=== PATIENT | female | born 1995 | race Two or more races ===

== ENCOUNTER 2018-04-05 13:38 | Emergency (ER) | payer MEDICAID, OTHER ==
[~2018-04-05] VITALS: Ht 165.1 cm; Wt 67.2 kg
[2018-04-05 13:40] VITALS: BP 104/59
== END 2018-04-05 14:49 | disposition home or self-care (01) ==
LOC: ER 13:38
DX: J03.90 Acute tonsillitis, unspecified (principal)

== ENCOUNTER 2018-04-16 12:59 | Emergency (ER) | payer OTHER ==
[~2018-04-16] VITALS: Ht 165.1 cm; Wt 67.1 kg
[2018-04-16 13:00] VITALS: BP 103/63
[2018-04-16] MEDS ORDERED: LIDOCAINE VISCOUS 2% 15ML UD PO ONE (14:45)
[2018-04-16] MEDS ORDERED: KETOROLAC TROMETH 60MG/2ML VIAL IM ONE (14:45)
== END 2018-04-16 15:08 | disposition home or self-care (01) ==
LOC: ER 12:59
DX: J02.9 Acute pharyngitis, unspecified (principal); R51 Headache; J45.909 Unspecified asthma, uncomplicated
CPT/HCPCS: 96372; 99283; J1885

== ENCOUNTER 2018-06-11 21:58 | Emergency (ER) | payer MEDICAID ==
[~2018-06-11] VITALS: Ht 165.1 cm; Wt 65.8 kg
[2018-06-11 22:09] VITALS: BP 104/64
[2018-06-12] MEDS ORDERED: ONDANSETRON ODT 4 MG TAB PO ONE (02:00)
[2018-06-12] MEDS ORDERED: SODIUM CHLORIDE 0.9% 1,000 ML IV ONE (02:00)
[2018-06-12] MEDS ORDERED: ONDANSETRON HCL 4 MG/2 ML VIAL ONE (02:25)
[2018-06-12] MEDS ORDERED: ONDANSETRON HCL 4 MG/2 ML VIAL IV ONE (02:30)
== END 2018-06-12 03:04 | disposition home or self-care (01) ==
LOC: ER 21:58
DX: J03.90 Acute tonsillitis, unspecified (principal); R11.2 Nausea with vomiting, unspecified; R19.7 Diarrhea, unspecified; J45.909 Unspecified asthma, uncomplicated; F17.210 Nicotine dependence, cigarettes, uncomplicated
CPT/HCPCS: 96361; 96374; 99284; J2405; J7030

== ENCOUNTER 2020-03-30 07:44 | Emergency (ER) | payer MEDICAID ==
[~2020-03-30] VITALS: Ht 165.1 cm; Wt 64.9 kg
[2020-03-30 08:05] VITALS: BP 95/62
[2020-03-30] MEDS ORDERED: methylPREDNISolone SOD SUCC 125 MG/2 ML VL IM ONE (08:15)
[2020-03-30] MEDS ORDERED: IBUPROFEN 800 MG TAB PO ONE (08:15)
== END 2020-03-30 08:51 | disposition home or self-care (01) ==
LOC: ER 07:44
DX: R09.82 Postnasal drip (principal); J00 Acute nasopharyngitis [common cold]; F17.210 Nicotine dependence, cigarettes, uncomplicated; J45.909 Unspecified asthma, uncomplicated
CPT/HCPCS: 71046; 96372; 99283; J2930

== ENCOUNTER 2020-04-14 19:20 | Emergency (ER) | payer MEDICAID ==
[~2020-04-14] VITALS: Ht 165.1 cm; Wt 64.9 kg
[2020-04-14 20:05] VITALS: BP 106/63
[2020-04-14] MEDS ORDERED: ONDANSETRON HCL 4 MG/2 ML VIAL IV ONE (20:15)
[2020-04-14] MEDS ORDERED: SODIUM CHLORIDE 0.9% 1,000 ML IV ONE (20:15)
[2020-04-14 20:38] LABS: Basophils # (auto) 0 10 ^3/uL (0-0.2); Basophils % (auto) 0.4 % (0.0-2.0); Eosinophils # (auto) 0.1 10 ^3/uL (0-0.8); Eosinophils % (auto) 1.5 % (0.0-7.0); Hematocrit 42.4 % (36.0-46.0); Hemoglobin 14.1 g/dL (12.2-16.2); Lymphocytes # (auto) 3.1 10 ^3/uL (0.4-5.4); Lymphocytes % (auto) 33.9 % (10.0-50.0); Mean Corpuscular Hemoglobin 31.8 pg (28.0-32.0); Mean Corpuscular Hgb Conc. 33.3 g/dL (32.0-36.0); Mean Corpuscular Volume 95.5 fL (80.0-100.0); Monocytes # (auto) 0.5 10 ^3/uL (0-1.3); Monocytes % (auto) 5.2 % (0.0-12.0); Neutrophils # (auto) 5.4 10 ^3/uL (1.6-8.6); Nucleated Red Blood Cells % 0.1 %; Platelet Count (auto) 235 10^3/uL (140-450); Red Blood Cells 4.43 10^6/uL (4.0-5.20); Red Cell Distribution Width 11.9 % (11.8-14.3); White Blood Cell 9.1 10^3/uL (4.4-10.8)
[2020-04-14 20:55] LABS: Albumin 3.7 g/dL (3.4-5.0); Calcium 8.8 mg/dL (8.5-10.1); Potassium 3.5 mmol/L (3.5-5.1)
[2020-04-14 20:58] LABS: BUN/Creatinine Ratio 12.8; Bilirubin, Total 0.4 mg/dL (0.2-1.0); Total Protein 7.4 g/dL (6.4-8.2)
[2020-04-14 22:16] LABS: Urine Bacteria MOD /hpf (None Seen); Urine Blood 2+ /uL (Negative); Urine Mucus FEW (None Seen); Urine Specific Gravity 1.022 (1.001-1.035); Urine WBC 4 /hpf (0 - 5)
[2020-04-14 23:47] LABS: Amylase 51 U/L (25-115); Lipase 101 U/L (73-393)
== END 2020-04-15 00:12 | disposition home or self-care (01) ==
LOC: ER 19:21
DX: K59.00 Constipation, unspecified (principal)
CPT/HCPCS: 36415; 74176; 80053; 81001; 81025; 82150; 83690; 85025; 96361; 96374; 99284; J2405; J7030

== ENCOUNTER 2020-07-13 16:34 | Emergency (ER) | payer MEDICAID ==
[~2020-07-13] VITALS: Ht 165.1 cm; Wt 61.2 kg
[2020-07-13 20:04] LABS: Urine Amorphous Crystal FEW /hpf (None Seen); Urine Bacteria NONE SEEN /hpf (None Seen); Urine Blood 3+ /uL (Negative); Urine Mucus FEW (None Seen); Urine Specific Gravity 1.026 (1.001-1.035); Urine WBC 22 /hpf (0 - 5); Urine WBC Clumps PRESENT /hpf (None Seen)
[2020-07-13 21:20] VITALS: BP 113/60
== END 2020-07-13 21:27 | disposition home or self-care (01) ==
LOC: ER 16:34
DX: O23.41 Unspecified infection of urinary tract in pregnancy, first trimester (principal); O99.511 Diseases of the respiratory system complicating pregnancy, first trimester; J45.909 Unspecified asthma, uncomplicated; O99.331 Smoking (tobacco) complicating pregnancy, first trimester; Z3A.00 Weeks of gestation of pregnancy not specified
CPT/HCPCS: 36415; 81001; 84702

== ENCOUNTER 2021-09-26 08:45 | Emergency (ER) | payer MEDICAID ==
[~2021-09-26] VITALS: Ht 165.1 cm; Wt 68.0 kg
[2021-09-26] MEDS ORDERED: SODIUM CHLORIDE 0.9% 1,000 ML IV ONE (09:45)
[2021-09-26] MEDS ORDERED: ONDANSETRON ODT 4 MG TAB PO ONE ×2 (09:45→12:45)
[2021-09-26] MEDS ORDERED: ONDANSETRON HCL 4 MG/2 ML VIAL IM ONE (10:30)
[2021-09-26] MEDS ORDERED: MORPHINE SULFATE INJECTION 2 MG/ML SYRG IV ONE (10:30)
[2021-09-26 11:07] VITALS: BP 114/62
[2021-09-26 11:21] LABS: Urine Bacteria FEW /hpf (None Seen); Urine Blood TRACE /uL (Negative); Urine Mucus FEW (None Seen); Urine Specific Gravity 1.032 (1.001-1.035); Urine WBC 1 /hpf (0 - 5)
[2021-09-26 11:27] LABS: Basophils # (auto) 0 10 ^3/uL (0-0.2); Basophils % (auto) 0.1 % (0.0-2.0); Eosinophils # (auto) 0 10 ^3/uL (0-0.8); Eosinophils % (auto) 0.1 % (0.0-7.0); Hematocrit 45.4 % (36.0-46.0); Hemoglobin 15.1 g/dL (12.2-16.2); Lymphocytes # (auto) 0.4 10 ^3/uL (0.4-5.4); Lymphocytes % (auto) 4.2 % (10.0-50.0); Mean Corpuscular Hgb Conc. 33.1 g/dL (32.0-36.0); Mean Corpuscular Volume 93.6 fL (80.0-100.0); Monocytes # (auto) 0.2 10 ^3/uL (0-1.3); Monocytes % (auto) 2.2 % (0.0-12.0); Neutrophils # (auto) 9.4 10 ^3/uL (1.6-8.6); Neutrophils % (auto) 93.4 % (37.0-80.0); Red Blood Cells 4.86 10^6/uL (4.0-5.20); Red Cell Distribution Width 11.9 % (11.8-14.3)
[2021-09-26 11:35] LABS: Albumin 3.9 g/dL (3.4-5.0); BUN/Creatinine Ratio 22.7; Bilirubin, Total 0.7 mg/dL (0.2-1.0); Calcium 9.1 mg/dL (8.5-10.1); Total Protein 7.6 g/dL (6.4-8.2)
[2021-09-26] MEDS ORDERED: KETOROLAC TROMETH 60MG/2ML VIAL IM ONE (12:15)
[2021-09-26] MEDS ORDERED: IBUP800T26 PO (13:27)
[2021-09-26] MEDS ORDERED: ONDA-144 PO (13:27)
[2021-09-26] MEDS ORDERED: CIPR-173 PO (13:27)
== END 2021-09-26 13:36 | disposition home or self-care (01) ==
LOC: ER 08:45
DX: K52.9 Noninfective gastroenteritis and colitis, unspecified (principal); N39.0 Urinary tract infection, site not specified; A05.9 Bacterial foodborne intoxication, unspecified; J45.909 Unspecified asthma, uncomplicated; Z20.822 Contact with and (suspected) exposure to COVID-19
CPT/HCPCS: 36415; 74176; 80053; 81001; 82150; 83690; 85025; 87426; 96361; 96372; 96374; 99284; J1885; J2270; J2405; J7030; Q0162

== ENCOUNTER 2021-10-14 14:28 | Emergency (ER) | payer MEDICAID ==
[~2021-10-14] VITALS: Ht 165.1 cm; Wt 68.0 kg
[~2021-10-14 14:28] MED LIST: CIPR-173 PO; IBUP800T26 PO; ONDA-144 PO
[2021-10-14 15:32] VITALS: BP 105/65
[2021-10-14] MEDS ORDERED: PROMETHAZINE HCL 25 MG/ML 1ML IM ONE (15:45)
[2021-10-14] MEDS ORDERED: KETOROLAC TROMETH 60MG/2ML VIAL IM ONE (15:45)
== END 2021-10-14 16:35 | disposition home or self-care (01) ==
LOC: ER 14:28
DX: F41.1 Generalized anxiety disorder (principal); G43.909 Migraine, unspecified, not intractable, without status migrainosus; J45.909 Unspecified asthma, uncomplicated; F32.9 Major depressive disorder, single episode, unspecified; F17.210 Nicotine dependence, cigarettes, uncomplicated
CPT/HCPCS: 96372; 99284; J1885; J2550

== ENCOUNTER 2023-12-21 16:48 | Emergency (ER) | payer MEDICAID ==
[~2023-12-21] VITALS: Ht 165.1 cm; Wt 90.2 kg
[~2023-12-21 16:48] MED LIST changes: +IBUP-1455 PO; -IBUP800T26 PO
[2023-12-21 18:17] VITALS: BP 114/54; PULSE 102; RESP 16; TEMP 98.9; O2SAT 100
== END 2023-12-21 19:00 | disposition home or self-care (01) ==
LOC: ER 16:48
DX: J02.9 Acute pharyngitis, unspecified (principal); R51.9 Headache, unspecified; R05.9 Cough, unspecified; J45.909 Unspecified asthma, uncomplicated; F17.210 Nicotine dependence, cigarettes, uncomplicated; Z79.1 Long term (current) use of non-steroidal anti-inflammatories (NSAID); Z79.2 Long term (current) use of antibiotics; Z79.899 Other long term (current) drug therapy

== ENCOUNTER 2025-05-03 14:21 | Emergency (ER) | payer MEDICAID ==
[~2025-05-03] VITALS: Ht 162.6 cm; Wt 83.2 kg
[2025-05-03 15:45] LABS: Hematocrit 44.7 % (36.0-46.0); Hemoglobin 15.5 g/dL (12.2-16.2); Mean Corpuscular Hemoglobin 31.7 pg (28.0-32.0); Mean Corpuscular Volume 91.6 fL (80.0-100.0); Nucleated Red Blood Cells % 0.0 %
[2025-05-03 15:52] LABS: Chloride 104 mmol/L (98-107); Potassium 3.8 mmol/L (3.5-5.1); Sodium 140 mmol/L (136-145)
[2025-05-03 15:53] LABS: Anion Gap 10 (5-15); Calcium 9.0 mg/dL (8.7-10.4); Carbon Dioxide 26 mmol/L (20-31)
--- NOTE | 2025-05-03 15:53 | ED.PDOC ---
History of Present Illness HPI Comments 29 y.o female presents to the ED for a chief complaint of a sore throat associated with dizziness, body aches, and nasal drip x 1 day. Patient reports this morning she had nausea followed by vomiting described as bile and diarrhea. Patient reports dizziness causes her to be uncoordinated and worsens with head movement. She has history of nystagmus and asthma. She denies any chest pain, SOB, fever, chills, bloody stool, hematemesis, dysuria. Chief Complaint: Dizziness Time Seen by MD: 15:42 Primary Care Provider: unknown Reviewed Notes: Nurses Notes, Medications, Allergies Allergies: Coded Allergies: NO KNOWN ALLERGIES (Unverified , 09/20/15) Home Meds Active Scripts Ibuprofen Micronized (Ibuprofen) 800 Mg Tab, 800 MG PO TIDPRN PRN for 10 Days, #30 TAB 0 Refills Prov:IFRAH FISCHERP 09/26/21 Ciprofloxacin Hcl (Cipro) 500 Mg Tab, 500 MG PO BID for 5 Days, #10 TAB 0 Refills Prov:IFRAH FISCHERP 09/26/21 Ondansetron (Zofran) 4 Mg Tab, 1 TAB PO Q4HP PRN for 3 Days, #15 TAB 0 Refills Prov:IFRAH FISCHERP 09/26/21 Information Source: Patient Mode of Arrival: Ambulatory Severity: Moderate Timing: Days (1) Duration: Since onset Past Medical History PAST MEDICAL HISTORY: Anxiety, Asthma, Depression Surgical History: DOG BEHAVIORIST History: No Pertinent DOG BEHAVIORIST History Family History Family History: Reviewed,noncontributory to illness, Family hx of DM Social History Smoker: Cigarettes, Other Alcohol: Occasionally Drugs: Denies Drug Use Lives In: Home Constitutional: denies: chills, diaphoresis, fatigue, fever, malaise, sweats, weakness, others EENTM: reports: throat pain; denies: blurred vision, double vision, ear bleeding, ear discharge, ear drainage, ear pain, ear ringing, eye pain, eye redness, hearing loss, mouth pain, mouth swelling, nasal discharge, nose bl eeding, nose congestion, nose pain, photophobia, tearing, throat swelling, voice changes, others Respiratory: denies: cough, hemoptysis, orthopnea, SOB at rest, shortness of breath, SOB with excertion, stridor, wheezing, others Cardiovascular: denies: chest pain, dizzy spells, diaphoresis, Dyspnea on exertion, edema, irregular heart beat, left arm pain, lightheadedness, palpitations, PND, syncope, others Gastrointestinal: reports: nausea, vomiting; denies: abdomen distended, abdominal pain, blood streaked bowels, constipated, diarrhea, dysphagia, difficulty swallowing, hematemesis, melena, poor appetite, poor fluid intake, rectal bleeding, rectal pain, others Genitourinary: denies: abnormal vagina bleeding, burning, dyspareunia, dysuria, flank pain, frequency, hematuria, incontinence, pain, , vagina discharge, urgency, others Neurological: reports: dizziness, headache; denies: fainting, left sided numbness, left sided weakness, numbness, paresthesia, pre-existing deficit, right sided numbness, right sided weakness, seizure, speech problems, tingling, tremors, weakness, others Musculoskeletal: reports: muscle pain; denies: back pain, gout, joint pain, joint swelling, muscle stiffness, neck pain, others Integumetry: denies: bruises, change in color, change in hair/nails, dryness, laceration, lesions, lumps, rash, wounds, others Allergic/Immunocompromised: denies: Difficulty Healing, Frequent Infections, Hives, Itching, others Hematologic/Lymphatic: denies: anemia, blood clots, easy bleeding, easy bruising, swollen glands, others Endocrine: denies: excessive hunger, excessive sweating, excessive thirst, excessive urination, flushing, intolerance to cold, intolerance to heat, unexplained weight gain, unexplained weight loss, others Psychiatric: denies: anxiety, bipolar disorder, depression, hopeless, panic disorder, schizophrenia, sleepless, suicidal, others All Other Systems: Reviewed and Negative Physical Exam General Appearance: No Apparent Distress HEENT: Pharyngeal Erythema, Other (Vitals and face symmetric. Moist mucous membranes.) Neck: Full Range of Motion, Non-Tender, Normal Inspection, Supple Respiratory: Lungs Clear, No Accessory Muscle Use, No Respiratory Distress, Normal Breath Sounds Cardiovascular: No Edema, No JVD, Regular Rate/Rhythm Breast Exam: Deferred Gastrointestinal: Non Tender, Soft Genitalia: Deferred Pelvic: Deferred Rectal: Deferred Extremities: Normal inspection, Normal range of motion, Non-tender, No pedal edema Neurologic: Alert (Oriented x4), Normal Affect, Normal Mood, Other (Ambulatory. Lateral nystagmus (chronic per patient)) Cerebellar Function: NOT DONE Reflexes: NOT DONE Skin: Dry, Normal Color, Warm Lymphatic: NOT DONE Was a procedure done? Was a procedure done?: No EKG EKG : Comments Sinus rhythm, rate 66, normal intervals, borderline right axis deviation, nonspecific T change. Differential Dx Considerations may include: Dehydration, Electrolyte imbalance, vertigo, Influenza, strep, COVID, other Viral syndrome, among others X-Ray, Labs, Meds, VS Vital Signs Date Time Temp Pulse Resp B/P (MAP) Pulse Ox O2 Delivery O2 Flow Rate FiO2 05/03/25 19:56 98.0 89 16 107/58 (74) 96 98.0 05/03/25 19:56 89 16 96 Room Air 05/03/25 18:30 98.7 86 14 105/64 (78) 97 98.7 05/03/25 15:53 66 05/03/25 14:24 98.5 78 16 114/64 98 98.5 Lab Test 05/03/25 21:07 05/03/25 19:06 05/03/25 16:29 05/03/25 15:13 Range/Units Group A Streptococcus Rapid Pending Influenza Type A Antigen Negative Negative Influenza Type B Antigen Negative Negative SARS-CoV-2 Antigen (Rapid) Negative NEGATIVE Urine Color Colorless Yellow Urine Clarity Clear Clear Urine pH 5.5 5.0-9.0 Urine Specific [place] 1.006 1.001-1.035 Urine Protein Negative Negative Urine Ketones Negative Negative Urine Blood 3+ H Negative /uL Urine Nitrite Negative Negative Urine Bilirubin Negative Negative Urine Urobilinogen Normal Negative mg/dL Urine Leukocyte Esterase Negative Negative /uL Urine RBC 1 0 - 4 /hpf Urine Microscopic WBC 1 0-5 /HPF Urine Squamous Epithelial Cells Few <5 /hpf Urine Bacteria Few H None Seen /hpf Urine Mucus Few None Seen Urine Glucose Normal Normal mg/dL Urine Test Negative Negative White Blood Count 9.5 4.4-10.8 10^3/uL Red Blood Count 4.88 4.0-5.20 10^6/uL Hemoglobin 15.5 12.2-16.2 g/dL Hematocrit 44.7 36.0-46.0 % Mean Corpuscular Volume 91.6 80.0-100.0 fL Mean Corpuscular Hemoglobin 31.7 28.0-32.0 pg Mean Corpuscular Hemoglobin Concent 34.6 32.0-36.0 g/dL Red Cell Distribution Width 12.2 11.8-14.3 % Platelet Count 265 140-450 10^3/uL Mean Platelet Volume 8.9 6.9-10.8 fL Neutrophils (%) (Auto) 71.8 37.0-80.0 % Lymphocytes (%) (Auto) 21.9 10.0-50.0 % Monocytes (%) (Auto) 4.5 0.0-12.0 % Eosinophils (%) (Auto) 1.5 0.0-7.0 % Basophils (%) (Auto) 0.3 0.0-2.0 % Neutrophils # (Auto) 6.8 1.6-8.6 10 ^3/uL Lymphocytes # (Auto) 2.1 0.4-5.4 10 ^3/uL Monocytes # (Auto) 0.4 0-1.3 10 ^3/uL Eosinophils # (Auto) 0.1 0-0.8 10 ^3/uL Basophils # (Auto) 0 0-0.2 10 ^3/uL Nucleated Red Blood Cells 0.0 % Sodium Level 140 136-145 mmol/L Potassium Level 3.8 3.5-5.1 mmol/L Chloride Level 104 98-107 mmol/L Carbon Dioxide Level 26 20-31 mmol/L Anion Gap 10 5-15 Blood Urea Nitrogen 8 L 9-23 mg/dL Creatinine 0.66 0.550-1.02 mg/dL Glomerular Filtration Rate Calc 122 >90 mL/min BUN/Creatinine Ratio 12.1 10.0-20.0 Serum Glucose 94 74-106 mg/dL Calcium Level 9.0 8.7-10.4 mg/dL Current Medications Medications (Trade) Dose Ordered Sig/Heidi Route Start Time Stop Time Status Last Admin Meclizine HCl (Antivert Tablet) 50 mg ONCE ONCE PO 05/03/25 16:00 05/03/25 16:01 DC 05/03/25 19:52 Acetaminophen (Tylenol Tablet Or Capsule) 1,000 mg ONCE ONCE PO 05/03/25 16:00 05/03/25 16:01 DC 05/03/25 19:52 X-Ray, Labs, Meds, VS Comment 49-year-old female with a history of asthma, anxiety and depression complaining of sore throat, nasal congestion, dizziness and body aches Vitals unremarkable Exam unremarkable Rhythm strip independently interpreted by me: Sinus rhythm, rate 66, no ectopy. CBC, basic metabolic panel and UA unremarkable. Influenza and COVID negative. Rapid strep pending Patient treated with the following in the ED: 1L 0.9 normal saline IV bolus, Tylenol 1 g p.o., meclizine 50 mg p.o., Zofran 4 mg IV On re-evaluation, patient states she feels better. Vitals were stable. Patient appears stable for discharge with close outpatient follow-up with her primary doctor. I will cover her for possible bacterial throat infection. Time of 1ST Reevaluation: 14:00 Reevaluation 1ST: Unchanged Patient Education/Counseling: Diagnosis, Treatment, Prognosis Family Education/Counseling: No Family Present SEPSIS Sepsis Screen Date sepsis recognized/suspect: May 03, 2025 Time Sepsis recognized/suspect: 1423 Recent Procedure: No On Antibiotic Therapy: No Respiratory Rate >20: No Heart Rate >90: No Temp<36 C (96.8 F) or >38.3 C: No SBP <90 or MAP <65 mmHG: No New Acute Mental Status Change: No Is the patient on CPAP, BIPAP,: No Physician Orders Rapid Strep Screen - Throat (05/03/25 14:44) Vital Signs Date Time Temp Pulse Resp B/P (MAP) Pulse Ox O2 Delivery O2 Flow Rate FiO2 05/03/25 19:56 98.0 89 16 107/58 (74) 96 98.0 05/03/25 19:56 89 16 96 Room Air 05/03/25 18:30 98.7 86 14 105/64 (78) 97 98.7 05/03/25 15:53 66 05/03/25 14:24 98.5 78 16 114/64 98 98.5 Laboratory Tests Test 05/03/25 15:13 White Blood Count 9.5 10^3/uL (4.4-10.8) Medications Medications Dose Ordered Sig/Heidi Route Start Time Stop Time Status Last Admin Dose Admin Acetaminophen 1,000 mg ONCE ONCE PO 05/03/25 16:00 05/03/25 16:01 DC 05/03/25 19:52 Meclizine HCl 50 mg ONCE ONCE PO 05/03/25 16:00 05/03/25 16:01 DC 05/03/25 19:52 Departure 1 Departure Time of Disposition: 21:00 Impression: Primary Impression: Pharyngitis Disposition: HOME / SELF CARE / HOMELESS Condition: Stable Additional Instructions: Your blood tests were unremarkable. Your tests for COVID and influenza were negative. Your strep test is still pending, so I have prescribed antibiotics to cover a possible bacterial throat infection. Follow-up with your primary doctor in 1-2 days. Return to ER for persistent or worsening symptoms. e-Prescriptions Ibuprofen Micronized (Ibuprofen) 800 Mg Tab 800 MG PO Q8HP PRN, #30 TAB Prn pain or fever. Take with food. Prov: ANSELMO JOHNSON MD 05/03/25 Meclizine HCl (Meclizine 25) 25 Mg Tab 25 MG PO TID PRN, #30 TAB Prn dizziness. Prov: ANSELMO JOHNSON MD 05/03/25 Amoxicillin & Pot Clavulanate (AUGMENTIN TABLET) 875 Mg Tb 875 MG PO BID for 10 Days, #20 TAB Prov: ANSELMO JOHNSON MD 05/03/25 Discharged With: Relative Critical Care Note Critical Care Time?: No Stability Stability form required: No I personally scribed for ANSELMO JOHNSON MD ([email or web address]) on 05/03/25 at 15:53. Electronically submitted by Alisa Lipscomb ([facility]). ANSELMO JOHNSON MD May 03, 2025 15:53
--- NOTE | 2025-05-03 15:54 | ECG ---
[facility] Test Date: 2025-05-03 Test Time: 15:53:33 Pat Name: MOSES DAILEY Department: [facility] ED Patient ID: [id number] Room: Gender: F [employer]visor [employer]: dior : 1995 Requested By: ANSELMO STANTON Order Number: [id number] Reading MD: Kingsley Luque Measurements Intervals [place] Rate: 66 P: 60 [place]: 138 QRS: 93 QRSD: 87 T: 57 QT: 385 QTc: 404 Interpretive Statements Sinus rhythm Borderline right axis deviation Electronically Signed On 05-06-2025 9:41:16 PDT by Kingsley Luque Please click the below link to view image of tracing.
[2025-05-03 15:58] LABS: BUN/Creatinine Ratio 12.1 (10.0-20.0); Glucose 94 mg/dL (74-106)
[2025-05-03 15:59] LABS: Blood Urea Nitrogen 8 mg/dL (9-23)
[2025-05-03] MEDS ORDERED: ONDANSETRON HCL 4 MG/2 ML VIAL IV ONE (16:00)
[2025-05-03 17:16] LABS: Urine Protein, UAD Negative (Negative)
[2025-05-03] MEDS: MECLIZINE HCL 25 MG TAB PO ONE (19:52)
[2025-05-03] MEDS: ACETAMINOPHEN 500 MG TAB or CAP PO ONE ×2 (19:52→23:22)
[2025-05-03 19:55] LABS: COVID19 ANTIGEN SOFIA FIA NEGATIVE (NEGATIVE)
[2025-05-03] MEDS: SODIUM CHLORIDE 0.9% 1,000 ML IV ONE (19:55)
[2025-05-03 19:56] VITALS: BP 107/58; PULSE 89; RESP 16; TEMP 98; O2SAT 96
[2025-05-03] MEDS ORDERED: MECL1TAB42 PO (21:38)
[2025-05-03] MEDS ORDERED: IBUP-1455 PO (21:38)
[2025-05-03] MEDS ORDERED: AUG875T PO (21:38)
[2025-05-03 22:19] LABS: Rapid Strep A Screen-Throat Negative
[2025-05-03] MEDS: MECLIZINE HCL 25 MG TAB ONE (23:22)
== END 2025-05-04 01:50 | disposition home or self-care (01) ==
LOC: ER 14:21
DX: J02.9 Acute pharyngitis, unspecified (principal); F41.9 Anxiety disorder, unspecified; J45.909 Unspecified asthma, uncomplicated; F17.210 Nicotine dependence, cigarettes, uncomplicated; Z79.899 Other long term (current) drug therapy; Z20.822 Contact with and (suspected) exposure to COVID-19
CPT/HCPCS: 36415; 80048; 81001; 81025; 85025; 87070; 87426; 87804; 87880; 93005; 99284; J8597